=== PATIENT | female | born 1970 | race Caucasian/White ===

== ENCOUNTER 2022-05-29 01:24 | Day surgery (SDC) | payer OTHER, SELFPAY ==
[2022-05-22 12:35] VITALS: BMI 30.4
[2022-05-29 07:18] VITALS: BP 130/77; PULSE 65; RESP 20; TEMP 36.4; O2SAT 95
[2022-05-29] MEDS: LACTATED RINGERS 1,000 ML 150 ML IV CONT (07:39)
--- NOTE | 2022-05-29 07:42 | P.PNAN_ITS ---
Anes - Initial Pre Proc Eval Procedure: Operation Date: 05/29/22 09:00 Proposed Procedures p Esophagogastroduodenoscopy & Colonoscopy - Malick Fischer MD Date/Time: 05/29/22 07:42 Surgeon: Malick Fischer MD Pre Op Diagnosis: constipation, anemia, family hx colon ca Patient Data Age: 52 Gender: F Height: 1.7 m Weight: 88.8 kg Last Vital Signs Temp 97.5 F L 05/29/22 07:18 Pulse 65 05/29/22 07:18 Resp 20 05/29/22 07:18 BP 130/77 05/29/22 07:18 Pulse Ox 95 05/29/22 07:18 O2 Del Method Room Air 05/29/22 07:18 Allergies Allergy/AdvReac Type Severity Reaction Status Date / Time almond oil Allergy Unknown Unknown Verified 05/29/22 07:17 lisinopril Allergy Unknown Unknown Verified 05/29/22 07:17 Home Medications Medication Instructions Recorded Confirmed Type losartan 50 mg tablet 50 mg PO DAILY 05/22/22 05/29/22 History paroxetine HCl 10 mg tablet 10 mg PO QAM 05/22/22 05/29/22 History polyethylene glycol 3350 17 17 g PO DAILY 05/22/22 05/29/22 History gram/dose oral powder sennosides 8.6 mg capsule (senna) 17.2 mg PO BID 05/22/22 05/29/22 History Patient hx anesthesia problems: none Family hx anesthesia problems: none Results Review: All pre-operative results and documents have been reviewed as part of the pre- operative evaluation. [facility] Social History Social History Substance use: former Substance use type: amphetamines Living arrangements: incarcerated Anes - Eval Final PreProcedure Day of Procedure 05/29/22 07:42 Patient weight: obese Heart: regular rate and rhythm Lungs: clear to auscultation Airway: Mallampati scale class II Neurological: alert and oriented Last oral intake: >/= 8 hours ASA classification: II Emergent: no Anesthetic plan: proceed Anesthesia type and monitoring: general GIVS and standard monitoring Results Review: All pre-operative results and documents have been reviewed as part of the pre- operative evaluation. Informed Consent: The patient's anesthetic plan and its attendant risks and benefits were discussed with the patient/family/POA. Questions were solicited and answers provided to the satisfaction of the patient/family/POA.
--- NOTE | 2022-05-29 08:05 | PM.HPGS ---
History of Present Illness History of Present Illness Consent: Risks, benefits, and alternatives have been discussed and questions answered. Patient agrees to proceed with procedure. Chief complaint: constipation, anemia, family hx colon ca Narrative: Sherie Hays is a 52 year old female with anastacia, denies overt gib, also father had colon cancer. She never had scopes Review of Systems Constitutional: Constitutional: Denies headache(s) and Denies weakness Eyes: Eyes: Denies blurry vision ENT: Reports Normal hearing present, Denies headache(s) and Denies neck pain Cardiovascular: Cardiovascular: Denies chest pain and Denies dyspnea Respiratory: Respiratory: Denies dyspnea Gastrointestinal: Gastrointestinal: Reports no additional gastrointestinal complaints Genitourinary: Genitourinary: Denies dysuria Musculoskeletal: Musculoskeletal: Denies neck pain Integumentary/Breasts: Skin/Breast: Denies dry skin Neurologic: Reports Normal hearing present, Denies headache(s) and Denies weakness Psychiatric: Psychiatric: Denies anxiety Endocrine: Endocrine: Denies change in body appearance Hematologic/Lymphatic: Hematologic/Lymphatic: Denies easy bleeding Allergic/Immunologic: Allergic/Immunologic: Denies urticaria PMFSH Past Medical History Medical History (Updated 05/29/22 @ 08:06 by Malick Fischer MD) Family history of colon cancer in father Iron deficiency anemia Social History Social History Substance use: former Substance use type: amphetamines Living arrangements: incarcerated Meds Home Medications and Allergies Home Medications Medication Instructions Recorded Confirmed Type losartan 50 mg tablet 50 mg PO DAILY 05/22/22 05/29/22 History paroxetine HCl 10 mg tablet 10 mg PO QAM 05/22/22 05/29/22 History polyethylene glycol 3350 17 17 g PO DAILY 05/22/22 05/29/22 History gram/dose oral powder sennosides 8.6 mg capsule (senna) 17.2 mg PO BID 05/22/22 05/29/22 History Allergies Allergy/AdvReac Type Severity Reaction Status Date / Time almond oil Allergy Unknown Unknown Verified 05/29/22 07:17 lisinopril Allergy Unknown Unknown Verified 05/29/22 07:17 Vital Signs Vital Signs - 24 hr 05/29/22 07:18 Temperature 97.5 F L Pulse Rate 65 Respiratory Rate 20 Blood Pressure 130/77 Pulse Oximetry 95 Oxygen Delivery Room Air Exam Const: General: comfortable and no acute distress HENMT: Face/Nose/Sinus: Normal nares present Eyes: General: appearance normal, both eyes and all related structures Neck: Neck: no JVD Resp: Auscultation: clear to auscultation bilaterally Cardio: Rate: regular rate Rhythm: regular rhythm GI: Inspection: non-distended GI Palp: Yes Soft to palpation Skin: General skin exam: normal color Neuro: General: gait normal Speech: normal speech Extrem: General: normal to inspection Psych: Mental Status: mental status grossly normal Assessment and Plan Assessment and plan (1) Family history of colon cancer in father: Code(s): Z80.0 - Family history of malignant neoplasm of digestive organs Status: Acute Assessment and Plan: colonoscopy (2) Iron deficiency anemia: Code(s): D50.9 - Iron deficiency anemia, unspecified Status: Acute Assessment and Plan: egd
--- NOTE | 2022-05-29 08:26 | SUR.OPER ---
EGD: started at 08. Colonoscopy began at 08.
[2022-05-29 08:41] VITALS: BP 126/80; PULSE 55; RESP 16; O2SAT 98
[2022-05-29 08:51] VITALS: BP 137/86; PULSE 62; RESP 17; O2SAT 99
[2022-05-29 09:01] VITALS: BP 147/82; PULSE 57; RESP 21; O2SAT 99
== END 2022-05-29 09:11 | disposition home or self-care (01) ==
PROVIDERS: Visit Provider Internal Medicine Gastroenterology
PROC: 0DJ08ZZ Inspection of Upper Intestinal Tract, Via Natural or Artificial Opening Endoscopic (ICD-10-PCS; CPT 43235; principal; 2022-05-29 09:00)
DX: Z12.11 Encounter for screening for malignant neoplasm of colon (principal); K63.5 Polyp of colon; K64.8 Other hemorrhoids; Z80.0 Family history of malignant neoplasm of digestive organs; K29.50 Unspecified chronic gastritis without bleeding; K44.9 Diaphragmatic hernia without obstruction or gangrene; D50.9 Iron deficiency anemia, unspecified; E66.9 Obesity, unspecified; Z68.30 Body mass index [BMI] 30.0-30.9, adult
CPT/HCPCS: 45385; 43239; 88305; 88342; J2704; J7120